=== PATIENT | male | born 1970 | race African-American/Black ===

== ENCOUNTER 2024-09-27 13:26 | Inpatient (IN) | payer SELFPAY ==
[~2024-09-27] VITALS: Ht 193 cm; Wt 68.2 kg
[2024-09-27 14:02] LABS: BASOPHILS % 0.5 % (0.0-2.0); EOSINOPHILS % 0.1 % (0.0-5.0); HEMATOCRIT. 39.5 % (42.0-52.0); HEMOGLOBIN. 12.8 g/dL (14.0-18.0); LYMPHOCYTES % 7.6 % (20.0-50.0); MEAN CORPUSCULAR HEMOGLOBIN 29.3 pg (28.0-32.0); MEAN CORPUSCULAR HGB CONC 32.4 g/dL (31.0-37.0); MEAN CORPUSCULAR VOLUME 90.5 fL (80.0-94.0); MEAN PLATELET VOLUME 7.9 fl (7.4-10.4); MONOCYTES % 6.9 % (2.0-8.0); NEUTROPHILS % 84.9 % (40.0-76.0); PLATELET 251 x1000/uL (130-400); RED BLOOD CELL COUNT 4.36 mill/uL (4.7-6.1); RED CELL DISTRIBUTION WIDTH 14.8 % (11.6-14.6); WHITE BLOOD COUNT 21.7 x1000/uL (4.5-11.0)
[2024-09-27 14:10] LABS: CHLORIDE 98 mEq/L (98-107); POTASSIUM 4.1 mEq/L (3.5-5.1); SODIUM 136 mEq/L (136-145)
[2024-09-27 14:11] LABS: CARBON DIOXIDE 31 mEq/L (21-32)
[2024-09-27 14:12] LABS: CALCIUM 9.8 mg/dL (8.7-10.4)
[2024-09-27 14:16] LABS: CREATININE 1.3 mg/dL (0.6-1.3); GLUCOSE 218 mg/dL (70-105)
[2024-09-27] MEDS: FAMOTIDINE 20MG/2ML VIAL IV STA (14:16)
[2024-09-27] MEDS: ONDANSETRON HCL 4MG/2ML INJ IV STA (14:16)
[2024-09-27 14:17] LABS: UREA NITROGEN BLOOD 29 mg/dL (9-23)
[2024-09-27 14:18] LABS: ALANINE AMINOTRANSFERASE 19 IU/L (10-49); ALBUMIN 4.2 g/dL (3.2-4.8); ASPARTATE AMINOTRANSFERASE 22 IU/L (<34)
[2024-09-27 14:19] LABS: BILIRUBIN DIRECT 0.2 mg/dL (<=3.0); BILIRUBIN TOTAL 0.8 mg/dL (0.1-1.0); PROTEIN TOTAL 7.7 g/dL (6.0-8.3); TROPONIN I HIGH SENSITIVITY 27 ng/L (3.0-53)
[2024-09-27 14:23] LABS: INR 1.1; PROTHROMBIN TIME 11.4 sec (9.6-11.0)
[2024-09-27] MEDS: CEFTRIAXONE 1GM/50ML 50 ML IV NR (16:11)
[2024-09-27] MEDS: BLOOD SUGAR DIAGNOSTIC STRIP TEST SCH (17:00)
[2024-09-27] MEDS ORDERED: LORAZEPAM 0.5MG TABLET PO PRN (17:15)
[2024-09-27] MEDS ORDERED: ONDANSETRON HCL 4MG/2ML INJ IV PRN (17:15)
[2024-09-27] MEDS ORDERED: ACETAMINOPHEN 325MG TABLET PO PRN (17:15)
[2024-09-27] MEDS ORDERED: DOCUSATE SODIUM 100MG CAPSULE PO PRN (17:15)
[2024-09-27] MEDS ORDERED: GUAIFENESIN 200MG/10ML SUGAR FREE UDC PO PRN (17:15)
[2024-09-27] MEDS ORDERED: DEXTROSE 50% WATER 50ML SYRINGE IV PRN (17:15)
[2024-09-27] MEDS ORDERED: CLONIDINE 0.1MG TABLET PO PRN (17:15)
[2024-09-27 18:00] VITALS: BP 162/72; PULSE 56; RESP 18; TEMP 36.3; O2SAT 100
[2024-09-27] MEDS: AMLODIPINE 5MG TABLET PO SCH (18:07)
[2024-09-27] MEDS: INSULIN LISPRO 100 UNITS/ML SUBCUT SCH (18:08)
[2024-09-27] MEDS: PIPERACILLIN/TAZO 3.375G/50ML 50 ML IV SCH (18:08)
[2024-09-27 18:10] VITALS: BP 162/72; PULSE 56; RESP 18; TEMP 36.6
[2024-09-27] MEDS ORDERED: METF-414 PO (18:35)
[2024-09-27 20:00] VITALS: BP 140/70; PULSE 54; RESP 16; TEMP 37.3; O2SAT 100
[2024-09-27] MEDS: INSULIN GLARGINE 100 UNITS/ML SUBCUT SCH (22:00)
[2024-09-28] VITALS: BP 144/74; PULSE 59; RESP 16; TEMP 36.9; O2SAT 96
[2024-09-28 04:00] VITALS: BP 131/76; PULSE 57; RESP 17; TEMP 37.6; O2SAT 95
[2024-09-28 07:00] LABS: BASOPHILS % 0.3 % (0.0-2.0); HEMATOCRIT. 39.5 % (42.0-52.0); LYMPHOCYTES % 11.8 % (20.0-50.0); MEAN CORPUSCULAR HEMOGLOBIN 29.7 pg (28.0-32.0); MEAN CORPUSCULAR HGB CONC 32.8 g/dL (31.0-37.0); MEAN CORPUSCULAR VOLUME 90.5 fL (80.0-94.0); MEAN PLATELET VOLUME 8.6 fl (7.4-10.4); MONOCYTES % 8.9 % (2.0-8.0); PLATELET 234 x1000/uL (130-400); RED BLOOD CELL COUNT 4.37 mill/uL (4.7-6.1); RED CELL DISTRIBUTION WIDTH 14.5 % (11.6-14.6); WHITE BLOOD COUNT 16.1 x1000/uL (4.5-11.0)
[2024-09-28 07:12] LABS: CHLORIDE 100 mEq/L (98-107); SODIUM 136 mEq/L (136-145)
[2024-09-28 07:13] LABS: CARBON DIOXIDE 28 mEq/L (21-32)
[2024-09-28 07:14] LABS: CALCIUM 9.9 mg/dL (8.7-10.4)
[2024-09-28 07:18] LABS: CREATININE 1.2 mg/dL (0.6-1.3); GLUCOSE 186 mg/dL (70-105)
[2024-09-28 07:19] LABS: UREA NITROGEN BLOOD 23 mg/dL (9-23)
[2024-09-28 08:00] VITALS: BP 151/82; PULSE 59; RESP 18; TEMP 37.4; O2SAT 99
[2024-09-28] MEDS: ACETAMINOPHEN 325MG TABLET PO PRN (10:06)
[2024-09-28] MEDS: ENOXAPARIN 40MG/0.4ML SYR SUBCUT SCH (10:07)
[2024-09-28] MEDS: KETOROLAC 30MG/ML VIAL IV NR (14:16)
[2024-09-28 16:00] VITALS: BP 136/79; PULSE 52; RESP 16; TEMP 36.7; O2SAT 100
[2024-09-28 20:00] VITALS: BP 118/63; PULSE 59; RESP 18; TEMP 37.2; O2SAT 99
[2024-09-29] VITALS: BP 122/62; PULSE 52; RESP 14; TEMP 37; O2SAT 100
[2024-09-29 01:06] LABS: CLARITY URINE CLOUDY (CLEAR); COLOR URINE YELLOW (YELLOW); GLUCOSE URINE NEGATIVE (NEGATIVE); KETONES URINE TRACE (NEGATIVE); LEUKOCYTE ESTERASE URINE NEGATIVE (NEGATIVE); NITRITE URINE NEGATIVE (NEGATIVE); OCCULT BLOOD URINE NEGATIVE (NEGATIVE); PH URINE 5.5 (4.5-8.0); PROTEIN URINE 1+ (NEGATIVE); SPECIFIC GRAVITY URINE 1.038 (1.005-1.030); UROBILINOGEN URINE 0.2 E.U./dL (0.2-1.0)
[2024-09-29 01:31] LABS: *AMPHETAMINES SCREEN URINE NEGATIVE (NEGATIVE); *BARBITURATES SCREEN URINE NEGATIVE (NEGATIVE); *BENZODIAZEPINES SCREEN URINE NEGATIVE (NEGATIVE); *COCAINE SCREEN URINE NEGATIVE (NEGATIVE); METHADONE URINE SCREEN NEGATIVE (NEGATIVE); OPIATES URINE SCREEN NEGATIVE (NEGATIVE)
[2024-09-29 01:32] LABS: CANNABINOID URINE SCREEN PRESUMPTIVE POSITIVE (NEGATIVE); ECSTASY MDMA SCREEN URINE NEGATIVE (NEGATIVE); PHENCYCLIDINE URINE SCREEN NEGATIVE (NEGATIVE)
[2024-09-29 04:00] VITALS: BP 135/87; PULSE 69; RESP 16; TEMP 36.1; O2SAT 100
[2024-09-29 05:34] LABS: RBC URINE 0-2 /hpf (0-2); WBC URINE 0-2 /hpf (0-2)
[2024-09-29 05:35] LABS: BACTERIA URINE NONE SEEN; SQUAMOUS EPITHELIAL CELL URINE NONE SEEN /lpf (RARE/1+)
[2024-09-29 07:44] LABS: HEMATOCRIT 41.5 % (42.0-52.0); HEMOGLOBIN 13.8 g/dL (14.0-18.0); MEAN CORPUSCULAR HGB CONC 33.2 g/dL (31.0-37.0); MEAN CORPUSCULAR VOLUME 90.3 fL (80.0-94.0); PLATELET 242 x1000/uL (130-400); RED BLOOD CELL COUNT 4.59 mill/uL (4.7-6.1); RED CELL DISTRIBUTION WIDTH 14.2 % (11.6-14.6); WHITE BLOOD COUNT 9.7 x1000/uL (4.5-11.0)
[2024-09-29 07:46] LABS: CALCIUM 9.2 mg/dL (8.7-10.4); CARBON DIOXIDE 32 mEq/L (21-32); CHLORIDE 98 mEq/L (98-107); POTASSIUM 3.5 mEq/L (3.5-5.1); SODIUM 135 mEq/L (136-145)
[2024-09-29 07:52] LABS: CREATININE 1.4 mg/dL (0.6-1.3); GLUCOSE 135 mg/dL (70-105); UREA NITROGEN BLOOD 24 mg/dL (9-23)
[2024-09-29 08:00] VITALS: BP 144/78; PULSE 89; RESP 16; TEMP 36.2; O2SAT 100
[2024-09-29 12:00] VITALS: BP 105/70; PULSE 87; RESP 18; TEMP 36.3; O2SAT 100
[2024-09-29] MEDS ORDERED: SULF1TAB48 MT (12:50)
[2024-09-29] MEDS ORDERED: AMLO5TAB88 PO (12:50)
[2024-09-29] MEDS ORDERED: MELA1TAB51 MT (12:50)
[2024-09-29 15:16] VITALS: BP 105/70; PULSE 87; TEMP 97.3; O2SAT 100
== END 2024-09-29 16:10 | disposition home or self-care (01) | DRG 720 ==
LOC: ER 13:26 → EDBEDREQTM 17:02 → EDBEDREQ 17:02 → 8WST 17:47
PROVIDERS: ADMIT Hospitalist; ATTEND Hospitalist
DX: A41.9 Sepsis, unspecified organism (principal); E46 Unspecified protein-calorie malnutrition; K52.9 Noninfective gastroenteritis and colitis, unspecified; N20.0 Calculus of kidney; M17.0 Bilateral primary osteoarthritis of knee; E11.65 Type 2 diabetes mellitus with hyperglycemia; I10 Essential (primary) hypertension; F17.210 Nicotine dependence, cigarettes, uncomplicated; Z68.1 Body mass index [BMI] 19.9 or less, adult; Z79.4 Long term (current) use of insulin; Z79.84 Long term (current) use of oral hypoglycemic drugs
CPT/HCPCS: 36415; 71045; 74176; 76705; 80048; 80076; 80305; 81003; 82962; 83036; 83605; 84145; 84484; 85025; 85027; 93005; 93970; 97161; 97167; 97535; 99285; J0696; J1650; J1815; J1885; J2405; J2543; J3490